=== PATIENT | male | born 1975 | race Caucasian/White ===

== ENCOUNTER 2019-10-26 11:00 | Outpatient (CLI) | payer BC, SELFPAY ==
--- NOTE | ~2019-10-26 | XR_ITS ---
EXAMINATION: XR abdomen/kub 1V INDICATION: Left flank pain TECHNIQUE: Supine views of the abdomen were obtained on 2 radiographs. COMPARISON: 12/31/2018 FINDINGS: Bowel contents project over the kidneys limiting sensitivity for renal stones. There is a stable 9 mm stone in the lower pole of the right kidney. A 6 mm linear calcification projecting over the left kidney lower pole could reflect a stone. No stones are identified along the expected courses of the ureters or within the urinary bladder. The bowel gas pattern is normal. The visualized lung b ases are clear. IMPRESSION: 1. Right nephrolithiasis and possible left nephrolithiasis. Reviewed, dictated and finalized at location A.
[2019-10-26 11:38] LABS: Add Urine Microscopic? YES; Appearance Urine Clear (Clear); Bilirubin Urine Negative (Negative); Blood Urine Negative (Negative); Color Urine Yellow (Yellow); Glucose Urine UA Negative (Negative); Ketones Urine Negative (Negative); Leukocyte Esterase Ur Negative LEU/UL (NEGATIVE); Mucus Urine Rare /lpf; Nitrate Urine Negative (Negative); Protein Urine Negative (Negative); RBC Urine 0-2 /hpf (0-2); Specific Grav Ur 1.016 (1.001-1.035); Squamous Epithelial Cell Urine Few /hpf (Few)
== END 2019-10-26 11:01 | disposition home or self-care (01) ==
PROVIDERS: PCP Internal Medicine; Visit Provider Nurse Practitioner Adult Health
DX: R10.9 Unspecified abdominal pain (principal); N20.0 Calculus of kidney
CPT/HCPCS: 74018; 81001; 87086

== ENCOUNTER 2019-10-30 09:56 | Outpatient (CLI) | payer BC, SELFPAY ==
--- NOTE | ~2019-10-30 | CT_ITS ---
EXAMINATION: CT abdomen pelvis wo con DATE: 10/30/2019 10:49 INDICATION: Left flank pain TECHNIQUE: Computed tomography (CT) of the abdomen and pelvis was performed without intravenous contr ast. The dose-length product (DLP) was 1661.64 mGy-cm. Automated exposure control and iterative recon struction technique were employed. COMPARISON: None FINDINGS: The lung bases are clear. The heart size is normal. The liver, spleen, pancreas, and adrena l glands are normal. The gallbladder is surgically absent. There are surgical changes near the gastro esophageal junction. There is a 9 mm nonobstructing stone of the left kidney lower pole. There is a 7 mm stone in the right renal pelvis. Nonobstructing stones measuring 9 mm and 6 mm are present in the right kidney lower pole. No stones are present in the ureters or bladder. There is no hydronephrosis or hydroureter. There are two large midline ventral hernias containing nonobstructed bowel and at le ast two epigastric hernias containing fat. No pathologically enlarged abdominal or pelvic lymph nodes are identified. There is no free intraperitoneal gas or evidence of bowel obstruction. There is mild lumbar spondylosis. IMPRESSION: 1. 7 mm stone in the right renal pelvis and bilateral nephrolithiasis without CT correlate for left f lank pain. 2. Multiple ventral hernias. Reviewed, dictated and finalized at location A. IMPRESSION: 1. 7 mm stone in the right renal pelvis and bilateral nephrolithiasis without C T correlate for left flank pain. 2. Multiple ventral hernias.
== END 2019-10-30 09:57 | disposition home or self-care (01) ==
PROVIDERS: PCP Internal Medicine; Visit Provider Nurse Practitioner Adult Health
DX: R10.9 Unspecified abdominal pain (principal); N20.0 Calculus of kidney; K43.9 Ventral hernia without obstruction or gangrene
CPT/HCPCS: 74176

== ENCOUNTER 2019-11-10 13:22 | Outpatient (CLI) | payer BC, SELFPAY ==
--- NOTE | 2019-11-10 13:24 | ECG_ITS ---
Measurements Intervals [place] Rate: 71 P: 34 RI: 156 QRS: 48 QRSD: 90 T: 41 QT: 353 QTc: 385 Interpretive Statements SINUS RHYTHM DELAYED PRECORDIAL R/S TRANSITION BASELINE ARTIFACT- I, III, AVR, AVL, AVF BORDERLINE ECG Electronically Signed On 11-10-2019 13:39:56 CDT by Ricardo Linder D.O.
[2019-11-10 14:04] LABS: Partial Thromboplastin Time 27.1 SECONDS (22.3-36.8)
== END 2019-11-10 13:23 | disposition home or self-care (01) ==
LOC: ANHSURGERY 13:24
PROVIDERS: PCP Internal Medicine; Visit Provider Urology
DX: N20.0 Calculus of kidney (principal); F17.200 Nicotine dependence, unspecified, uncomplicated; R94.31 Abnormal electrocardiogram [ECG] [EKG]
CPT/HCPCS: 36415; 85610; 85730; 87086; 93005

== ENCOUNTER 2019-11-17 08:23 | Outpatient (CLI) | payer BC, SELFPAY ==
[2019-11-17 17:42] LABS: SARS-CoV-2 RNA PCR Negative
== END 2019-11-17 08:24 | disposition home or self-care (01) ==
LOC: ANHCOVIDDT 08:23
PROVIDERS: PCP Internal Medicine; Visit Provider Urology
DX: Z01.818 Encounter for other preprocedural examination (principal); Z11.59 Encounter for screening for other viral diseases
CPT/HCPCS: 87635; C9803; U0003

== ENCOUNTER 2019-11-19 05:32 | Day surgery (SDC) | payer BC, SELFPAY ==
[2019-11-09 12:34] VITALS: BMI 44.6
--- NOTE | 2019-11-16 15:59 | PM.HPGS ---
History of Present Illness History of Present Illness Consent: Risks, benefits, and alternatives have been discussed and questions answered. Patient agrees to proceed with procedure. Chief complaint: Left kidney stones Narrative: Oj Wyman is a 44 year old male with a history of recurring urolithiasis. He recently underwent evaluation for left flank pain. CT scan of the abdomen and pelvis without contrast showed bilateral renal stones, 9 mm in the right kidney and 6 mm in the left kidney. Because the pain is in the left he is scheduled for left ESWL. He is aware of the risk of this procedure including, but not limited to, perinephric bleeding, urinary tract infection and failure to completely treat the stones. Review of Systems Constitutional: Constitutional: Denies chills, Denies fatigue, Denies fever(s) and Denies headache(s) Eyes: Eyes: Denies blurry vision ENT: Denies vertigo, Denies dizziness, Denies headache(s) and Denies sore throat Cardiovascular: Cardiovascular: Denies chest pain, Denies syncope, Denies lightheadedness, Denies palpitations, Denies dyspnea and Denies dyspnea on exertion Respiratory: Respiratory: Denies hemoptysis, Denies dyspnea and Denies dyspnea on exertion Gastrointestinal: Gastrointestinal: Denies melena, Denies bloating, Denies hematochezia, Denies change in bowel habits, Denies change in stool character, Denies constipation, Denies diarrhea and Denies vomiting Genitourinary: Genitourinary: Denies hematuria, Denies dysuria, Denies testicular pain, Denies urinary frequency, Denies urinary hesitancy and Denies urinary urgency Integumentary/Breasts: Skin/Breast: Denies pruritus, Denies lesions and Denies rash Neurologic: Denies confusion, Denies vertigo, Denies dizziness, Denies syncope and Denies headache(s) Psychiatric: Psychiatric: Denies anxiety, Denies change in appetite and Denies confusion Endocrine: Endocrine: Denies fatigue and Denies palpitations Meds Home Medications and Allergies Home Medications Medication Instructions Recorded Confirmed Type multivit with min-folic acid 0.4 mg PO DAILY 11/09/19 11/09/19 History [Adult One Daily Multivitamin] paroxetine HCl [Paxil] 20 mg PO QAM 11/09/19 11/09/19 History testosterone enanthate 50 mg SUBCUT WEEKLY 11/09/19 11/09/19 History Allergies Allergy/AdvReac Type Severity Reaction Status Date / Time Penicillins Allergy Severe throat Unverified 11/09/19 12:44 swelling Sulfa (Sulfonamide Allergy Severe Hives Unverified 11/09/19 12:44 Antibiotics) Exam Const: General: no acute distress Resp: Effort & Inspection: normal respiratory effort GI: Inspection: non-distended GI Palp: No abdominal tenderness and No Guarding due to palpation present (GI) Auscultation: normal bowel sounds Assessment and Plan Assessment and plan (1) Bilateral renal stones: Code(s): N20.0 - Calculus of kidney Status: Acute Assessment and Plan: Left ESWL
[2019-11-19] VITALS (7 sets, daily range): BP systolic 107–130; BP diastolic 61–76; PULSE 64–70; RESP 14–24; TEMP 36.4; O2SAT 94–100
--- NOTE | ~2019-11-19 | XR_ITS ---
EXAMINATION: XR abdomen/kub 1V DATE: 11/19/2019 06:33 INDICATION: Left flank pain. TECHNIQUE: A supine view of the abdomen on 2 radiographs was obtained. COMPARISON: CT abdomen and pelvis 10/30/2019 FINDINGS: There are no dilated loops of bowel. There are 3 stones in right kidney measuring up to 7 m m. There is a 6 mm stone or cluster of stones in left kidney lower pole. IMPRESSION: 1. Bilateral kidney stones. Reviewed, dictated and finalized at location A. IMPRESSION: 1. Bilateral kidney stones.
--- NOTE | 2019-11-19 07:00 | WPDHPUPDATE1 ---
History and Physical Update Update Date/Time: 11/19/19 07:00 History and Physical has been reviewed, including an updated exam of the patient. There are NO changes in the patient's condition. Risks, benefits, and alternatives have been discussed and questions answered. Patient agrees to proceed with procedure.
[2019-11-19] MEDS: LACTATED RINGERS 1,000 ML 30 ML IV CONT (07:25)
--- NOTE | 2019-11-19 08:05 | WPDANESEPPF ---
Anes - Initial Pre Proc Eval Procedure: Operation Date: 11/19/19 08:30 Proposed Procedures p Left Extracorporeal Shock Wave Lithotripsy - Felice Ndiaye MD Date/Time: 11/19/19 08:05 Surgeon: Felice Ndiaye MD Pre Op Diagnosis: Left kidney stones Patient Data Age: 44 Gender: M Height: 5 ft 11 in Weight: 153.5 kg Last Vital Signs Temp 36.4 C 11/19/19 07:51 Pulse 67 11/19/19 07:51 Resp 18 11/19/19 07:51 BP 130/76 11/19/19 07:51 Pulse Ox 99 11/19/19 07:51 Allergies Allergy/AdvReac Type Severity Reaction Status Date / Time Penicillins Allergy Severe throat Verified 11/19/19 06:55 swelling Sulfa (Sulfonamide Allergy Severe Hives Verified 11/19/19 06:55 Antibiotics) Home Medications Medication Instructions Recorded Confirmed Type multivit with min-folic acid 0.4 mg PO DAILY 11/09/19 11/19/19 History [Adult One Daily Multivitamin] paroxetine HCl [Paxil] 20 mg PO QAM 11/09/19 11/19/19 History testosterone enanthate 50 mg SUBCUT WEEKLY 11/09/19 11/19/19 History Patient hx anesthesia problems: none Family hx anesthesia problems: none [facility] Past Medical History Medical History (Updated 11/19/19 @ 08:05 by Michael Reynolds MD) Anxiety ABBE (obstructive sleep apnea) Anes - Eval Final PreProcedure Day of Procedure 11/19/19 08:05 Patient weight: morbidly obese Heart: regular rate and rhythm Lungs: clear to auscultation Airway: Mallampati scale class II Neurological: alert and oriented Last oral intake: >/= 8 hours ASA classification: III Emergent: no Anesthetic plan: proceed Anesthesia type and monitoring: general LMA and standard monitoring Informed Consent: The patient's anesthetic plan and its attendant risks and benefits were discussed with the patient/family/POA. Questions were solicited and answers provided to the satisfaction of the patient/family/POA.
[2019-11-19] MEDS: levoFLOXacin 500 MG/D5W 100 ML 500 MG/100 ML BAG 100 MG IVPB (08:35)
--- NOTE | 2019-11-19 09:06 | PM.PROC ---
Procedure Note - Detailed Date of procedure: 11/19/19 Pre-op diagnosis: Left kidney stones Post-op diagnosis: same Procedure performed: Left ESWL Description of procedure: The patient was brought to the operative suite where he was placed in the supine position on the Dornier II lithotripsy table. The focal point of the lithotripter was placed at a 5-6mm left lower pole renal calculus. We did inject 100cc of IV Omnipaque 240 to confirm proper positioning. A total of 2500 shocks were delivered at a power setting of 4. There appeared to be good fragmentation of the stone. The patient tolerated the procedure well and was taken to the recovery room in good condition. Anesthesia: GLMA Surgeon: Felice Ndiaye MD Estimated blood loss (mL): 0 Drains: No Packing: No Pathology: yes Complications: No immediate complications Condition: stable Disposition: PACU
[2019-11-19] MEDS: KETOROLAC 30 MG/ML VIAL (*BKC) IV PUSH (09:31)
== END 2019-11-19 11:00 | disposition home or self-care (01) ==
PROVIDERS: PCP Internal Medicine; Visit Provider Urology
PROC: (CPT 50590; principal; 2019-11-19 08:30)
DX: N20.0 Calculus of kidney (principal); G47.33 Obstructive sleep apnea (adult) (pediatric); F41.9 Anxiety disorder, unspecified; E66.01 Morbid (severe) obesity due to excess calories; Z68.42 Body mass index [BMI] 45.0-49.9, adult
CPT/HCPCS: 50590; 74018; A9270; J1100; J1885; J1956; J2405; J2704; J3010; J7030; J7120

== ENCOUNTER 2019-11-23 10:44 | Outpatient (CLI) | payer BC, SELFPAY ==
[2019-11-23 11:34] LABS: INR 1.1; Prothrombin Time 13.6 Seconds (11.1-14.7)
[2019-11-23 11:35] LABS: Partial Thromboplastin Time 27.9 SECONDS (22.3-36.8)
== END 2019-11-23 10:45 | disposition home or self-care (01) ==
LOC: ANHSURGERY 10:45
PROVIDERS: PCP Internal Medicine; Visit Provider Urology
DX: N20.0 Calculus of kidney (principal)
CPT/HCPCS: 36415; 85610; 85730; 87086

== ENCOUNTER 2019-12-01 00:28 | Outpatient (CLI) | payer BC, SELFPAY ==
[2019-12-01 18:10] LABS: SARS-CoV-2 RNA PCR Negative
== END 2019-12-01 00:29 | disposition home or self-care (01) ==
LOC: ANHCOVIDDT 00:28
PROVIDERS: PCP Internal Medicine; Visit Provider Urology
DX: Z20.828 Contact with and (suspected) exposure to other viral communicable diseases (principal); Z01.812 Encounter for preprocedural laboratory examination
CPT/HCPCS: 87635; C9803; U0003

== ENCOUNTER 2019-12-03 02:46 | Day surgery (SDC) | payer BC, SELFPAY ==
[2019-11-22 10:38] VITALS: BMI 45.8
--- NOTE | 2019-11-30 16:52 | P.HP_ITS ---
History of Present Illness History of Present Illness Consent: Risks, benefits, and alternatives have been discussed and questions answered. Patient agrees to proceed with procedure. Chief complaint: kidney stones Narrative: Oj Wyman is a 44 year old male who is a recurrent kidney stone former. He recently underwent left ESWL in his known to have 3 residual stones in his right kidney. He now presents for right ESWL Review of Systems Cardiovascular: Cardiovascular: Denies chest pain, Denies lightheadedness, Denies palpitations and Denies dyspnea Respiratory: Respiratory: Denies dyspnea Gastrointestinal: Gastrointestinal: Denies diarrhea, Denies nausea and Denies vomiting Genitourinary: Genitourinary: Denies hematuria and Denies dysuria Endocrine: Endocrine: Denies palpitations PMFSH Past Medical History Medical History Anxiety ABBE (obstructive sleep apnea) Social History Social History Gender identity (if verbalized by the patient): Male Meds Home Medications and Allergies Home Medications Medication Instructions Recorded Confirmed Type Adult One Daily Multivitamin 0.4 mg PO DAILY 11/09/19 11/22/19 History paroxetine HCl [Paxil] 20 mg PO QAM 11/09/19 11/22/19 History testosterone enanthate 100 mg SUBCUT WEEKLY 11/09/19 11/22/19 History ciprofloxacin HCl 500 mg PO Q12H #10 tablet 11/19/19 11/22/19 Rx Allergies Allergy/AdvReac Type Severity Reaction Status Date / Time Penicillins Allergy Severe throat Verified 11/22/19 10:35 swelling Sulfa (Sulfonamide Allergy Severe Hives Verified 11/22/19 10:35 Antibiotics) Exam Const: General: no acute distress Resp: Effort & Inspection: normal respiratory effort GI: Inspection: non-distended GI Palp: No abdominal tenderness and No Guarding due to palpation present (GI) Auscultation: normal bowel sounds Assessment and Plan Assessment and plan (1) Bilateral renal stones: Code(s): N20.0 - Calculus of kidney Status: Acute Assessment and Plan: * Right ESWL. Patient is aware of the risk including, but not limited to adverse cardiopulmonary events, bleeding from the kidney, failure to adequately treat his stones.
--- NOTE | ~2019-12-03 | XR_ITS ---
EXAMINATION: XR abdomen/kub 1V DATE: 12/03/2019 07:52 INDICATION: Right kidney stone. TECHNIQUE: A supine view of the abdomen on 2 radiographs was obtained. COMPARISON: CT abdomen and pelvis 10/30/2019 FINDINGS: There are no dilated loops of bowel. The kidneys are obscured by bowel. IMPRESSION: 1. Kidneys obscured by bowel. No visible urolithiasis. Reviewed, dictated and finalized at location A.
--- NOTE | 2019-12-03 07:04 | WPDHPUPDATE1 ---
History and Physical Update Update Date/Time: 12/03/19 07:04 History and Physical has been reviewed, including an updated exam of the patient. There are NO changes in the patient's condition. Risks, benefits, and alternatives have been discussed and questions answered. Patient agrees to proceed with procedure.
[2019-12-03 07:58] VITALS: BP 136/81; PULSE 70; RESP 20; TEMP 36.3; O2SAT 99
--- NOTE | 2019-12-03 08:33 | WPDANESEPPF ---
Anes - Initial Pre Proc Eval Procedure: Operation Date: 12/03/19 09:30 Proposed Procedures p Right Renal Extracorporeal Shock Wave Lithotripsy - Felice Ndiaye MD Date/Time: 12/03/19 08:33 Surgeon: Felice Ndiaye MD Pre Op Diagnosis: kidney stones Patient Data Age: 44 Gender: M Height: 5 ft 11 in Weight: 149.23 kg Allergies Allergy/AdvReac Type Severity Reaction Status Date / Time Penicillins Allergy Severe throat Verified 11/22/19 10:35 swelling Sulfa (Sulfonamide Allergy Severe Hives Verified 11/22/19 10:35 Antibiotics) Home Medications Medication Instructions Recorded Confirmed Type Adult One Daily Multivitamin 0.4 mg PO DAILY 11/09/19 11/22/19 History paroxetine HCl [Paxil] 20 mg PO QAM 11/09/19 11/22/19 History testosterone enanthate 100 mg SUBCUT WEEKLY 11/09/19 11/22/19 History ciprofloxacin HCl 500 mg PO Q12H #10 tablet 11/19/19 11/22/19 Rx Patient hx anesthesia problems: none Family hx anesthesia problems: none PMFSH Past Medical History Medical History (Updated 12/03/19 @ 08:33 by Tre Hoover MD) Anxiety Morbid obesity ABBE (obstructive sleep apnea) Social History Social History (Updated 12/03/19 @ 08:33 by Tre Hoover MD) Smoking status: Current every day smoker Gender identity (if verbalized by the patient): Male Anes - Eval Final PreProcedure Day of Procedure 12/03/19 08:33 Patient weight: morbidly obese Heart: regular rate and rhythm Lungs: clear to auscultation Airway: Mallampati scale class II and other (upper denture) Neurological: alert and oriented Last oral intake: >/= 8 hours ASA classification: III Emergent: no Anesthetic plan: proceed Anesthesia type and monitoring: general LMA and standard monitoring Informed Consent: The patient's anesthetic plan and its attendant risks and benefits were discussed with the patient/family/POA. Questions were solicited and answers provided to the satisfaction of the patient/family/POA.
[2019-12-03] MEDS: levoFLOXacin 500 MG/D5W 100 ML 500 MG/100 ML BAG 100 MG IVPB (08:56)
[2019-12-03] MEDS: LACTATED RINGERS 1,000 ML 30 ML IV CONT (09:05)
--- NOTE | 2019-12-03 09:20 | SUR.PREOP ---
family update provided
--- NOTE | 2019-12-03 09:21 | PM.PROC ---
Procedure Note - Detailed Date of procedure: 12/03/19 Pre-op diagnosis: kidney stones Post-op diagnosis: same Procedure performed: Right ESWL Description of procedure: The patient was brought to the operative suite where he was placed in the supine position on the Dornier lithotripsy table. The focal point of the lithotripter was placed at each of 3 stones in right renal pelvis and lower pole calyces.. A total of 2500 shocks were delivered at a power setting of 4 - distributing the shocks until each of the 3 stones appeared to be adequately treated. There appeared to be good fragmentation of the stone. The patient tolerated the procedure well and was taken to the recovery room in good condition. Anesthesia: GLMA Surgeon: Felice Ndiaye MD Estimated blood loss (mL): 0 Drains: No Packing: No Pathology: none sent Complications: No immediate complications Condition: stable Disposition: PACU
[2019-12-03 09:43] VITALS: BP 135/71; PULSE 77; RESP 16; TEMP 36.6; O2SAT 100
[2019-12-03 09:55] VITALS: BP 110/73; PULSE 73; RESP 16; O2SAT 100
[2019-12-03 10:10] VITALS: BP 119/72; PULSE 73; RESP 14; O2SAT 99
[2019-12-03 10:20] VITALS: BP 121/65; PULSE 76
[2019-12-03 10:30] VITALS: BP 133/65; PULSE 80
== END 2019-12-03 11:00 | disposition home or self-care (01) ==
PROVIDERS: PCP Internal Medicine; Visit Provider Urology
PROC: (CPT 50590; principal; 2019-12-03 09:30)
DX: N20.0 Calculus of kidney (principal); G47.33 Obstructive sleep apnea (adult) (pediatric); F41.9 Anxiety disorder, unspecified
CPT/HCPCS: 50590; 74018; J1100; J1956; J2250; J2405; J2704; J3010; J7120

== ENCOUNTER 2020-07-18 12:02 | Outpatient (CLI) | payer BC, SELFPAY ==
--- NOTE | ~2020-07-18 | XR_ITS ---
XR abdomen/kub 1V DATE: 07/18/2020 12:24 INDICATION: One-year post lithotripsy; history of kidney stones TECHNIQUE: AP projection, 2 views COMPARISON: 12/03/2019 KUB FINDINGS: Nonspecific bowel gas pattern without evidence of obstruction. No visceromegaly is evident. Some faint opacities overlie the renal silhouettes, of uncertain significance. Noncontrast CT abdome n pelvis is recommended for more definitive evaluation for urinary tract stones. IMPRESSION: Nonspecific abdomen Reviewed, dictated and finalized at Location A. Reviewed, dictated and finalized at location A. NICAL PLANNER IMPRESSION: Nonspecific abdomen
== END 2020-07-18 12:03 | disposition home or self-care (01) ==
PROVIDERS: PCP Internal Medicine; Visit Provider Urology
DX: N20.0 Calculus of kidney (principal)
CPT/HCPCS: 74018

== ENCOUNTER 2020-07-19 00:12 | Outpatient (CLI) | payer BC, SELFPAY ==
[2020-07-19 17:16] LABS: SARS-CoV-2 RNA PCR Negative
== END 2020-07-19 00:13 | disposition home or self-care (01) ==
LOC: ANHCOVIDDT 00:13
PROVIDERS: PCP Internal Medicine; Visit Provider Urology
DX: Z01.812 Encounter for preprocedural laboratory examination (principal); Z20.822 Contact with and (suspected) exposure to COVID-19
CPT/HCPCS: C9803; U0003; U0005

== ENCOUNTER 2020-07-19 07:30 | Outpatient (CLI) | payer BC, SELFPAY | END 2020-07-19 07:31 | disposition home or self-care (01) | PROVIDERS: PCP Internal Medicine; Visit Provider Urology | DX: N20.1 Calculus of ureter (principal); Z01.818 Encounter for other preprocedural examination | CPT/HCPCS: 87086; 87088 ==

== ENCOUNTER 2020-07-20 07:46 | Outpatient (CLI) | payer BC, SELFPAY ==
--- NOTE | 2020-07-20 07:50 | ECG_ITS ---
Measurements Intervals [place] Rate: 71 P: 27 CT: 163 QRS: 56 QRSD: 89 T: 54 QT: 340 QTc: 370 Interpretive Statements SINUS RHYTHM DELAYED PRECORDIAL R/S TRANSITION BASELINE ARTIFACT- I, III, AVR, AVL BORDERLINE ECG Electronically Signed On 07-20-2020 9:58:17 FLUID DYNAMICIST by Ricardo Linder D.O.
== END 2020-07-20 07:47 | disposition home or self-care (01) ==
PROVIDERS: PCP Internal Medicine; Visit Provider Urology
DX: Z01.818 Encounter for other preprocedural examination (principal); F17.200 Nicotine dependence, unspecified, uncomplicated; R94.31 Abnormal electrocardiogram [ECG] [EKG]
CPT/HCPCS: 93005

== ENCOUNTER 2020-07-21 02:07 | Day surgery (SDC) | payer BC, SELFPAY ==
[2020-07-19 09:48] VITALS: BMI 48.2
--- NOTE | ~2020-07-21 | XR_ITS ---
EXAMINATION: XR retrograde pyelo w/stent LT DATE: 07/22/2020 15:09 INDICATION: Internal ureteral stent placement TECHNIQUE: Fluoroscopic images from a left internal ureteral stent placement are submitted for review . 38 seconds of fluoroscopy time. FINDINGS: There is a left double-J internal ureteral stent projecting in expected position, with proximal [place] loop at the level of the renal pelvis and distal loop in the pelvis within the bladder lumen. IMPRESSION: 1. Left internal ureteral stent placement. Please refer to real-time procedural findings for detail s. Reviewed, dictated and finalized at location A. ATRIC PHYSICIAN IMPRESSION: 1. Left internal ureteral stent placement. Please refer to real-time procedur al findings for details.
[2020-07-21 09:22] VITALS: BP 136/85; PULSE 64; RESP 20; TEMP 36.9; O2SAT 98
[2020-07-21] MEDS: LACTATED RINGERS 1,000 ML 30 ML IV CONT (10:05)
--- NOTE | 2020-07-21 10:06 | WPDHPUPDATE1 ---
History and Physical Update Update Date/Time: 07/21/20 10:06 History and Physical has been reviewed, including an updated exam of the patient. There are NO changes in the patient's condition. Risks, benefits, and alternatives have been discussed and questions answered. Patient agrees to proceed with procedure. Proceed with cysto, left retrograde, left ureteroscopy with stone extraction , possible laser, stent placement
--- NOTE | 2020-07-21 10:13 | WPDANESEPPF ---
Anes - Initial Pre Proc Eval Procedure: Operation Date: 07/21/20 11:00 Proposed Procedures p Cystoscopy, Left Ureteroscopy With Stone Extraction, Possible Left Retrograde Pyelogram, Possible Left Stent Placement - Fabián Bañuelos MD s Holmium Laser Procedure - Fabián Bañuelos MD Date/Time: 07/21/20 10:13 Surgeon: Fabián Bañuelos MD Pre Op Diagnosis: Left UPJ Stone Patient Data Age: 45 Gender: M Height: 5 ft 11 in Weight: 157 kg Allergies Allergy/AdvReac Type Severity Reaction Status Date / Time Penicillins Allergy Severe throat Verified 12/03/19 09:06 swelling Sulfa (Sulfonamide Allergy Severe Hives Verified 12/03/19 09:06 Antibiotics) Home Medications Medication Instructions Recorded Confirmed Type Adult One Daily Multivitamin 0.4 mg PO DAILY 11/09/19 07/19/20 History paroxetine HCl [Paxil] 20 mg PO QAM 11/09/19 07/19/20 History testosterone enanthate 100 mg SUBCUT WEEKLY 11/09/19 07/19/20 History hydrocodone-acetaminophen 1 - 2 tablet PO Q6H PRN #20 tablet 12/03/19 07/19/20 Rx cyanocobalamin (vitamin B-12) 1,000 mcg IM WEEKLY 07/19/20 07/19/20 History tamsulosin 0.4 mg PO DAILY 07/19/20 07/19/20 History Patient hx anesthesia problems: none Family hx anesthesia problems: none PMFSH Past Medical History Medical History (Updated 12/03/19 @ 08:33 by Tre Hoover MD) Anxiety Morbid obesity ABBE (obstructive sleep apnea) Social History Social History (Updated 12/03/19 @ 08:33 by Tre Hoover MD) Smoking packs per day: 1.5 Smoking cigarettes per day: 30.0 Years smoked: 25 Smoking pack-years: 37.50 Smoking status: Current every day smoker Tobacco type: cigarettes Living arrangements: with family Gender identity (if verbalized by the patient): Male Sexual Orientation (if Verbalized by the Patient): Straight or Heterosexual Spiritual care concerns: No Anes - Eval Final PreProcedure Day of Procedure 07/21/20 10:13 Patient weight: morbidly obese Heart: regular rate and rhythm Lungs: clear to auscultation Airway: Mallampati scale class III Neurological: alert and oriented Last oral intake: >/= 8 hours ASA classification: III Emergent: no Anesthetic plan: proceed Anesthesia type and monitoring: general LMA and standard monitoring Informed Consent: The patient's anesthetic plan and its attendant risks and benefits were discussed with the patient/family/POA. Questions were solicited and answers provided to the satisfaction of the patient/family/POA.
[2020-07-21] MEDS: levoFLOXacin 500 MG/D5W 100 ML 500 MG/100 ML BAG 100 MG IVPB (10:31)
--- NOTE | 2020-07-21 11:03 | SUR.OPER ---
B/S CONTOUR VL 4.8F LOT [id number], EXP 2023-04-27
[2020-07-21] MEDS: LIDOCAINE HCL 2% GEL UROJET 10 ML PKG MUCOUS MEM (11:27)
--- NOTE | 2020-07-21 11:29 | PM.PROC ---
Procedure Note - Detailed Date of procedure: 07/21/20 Pre-op diagnosis: Left UPJ Stone Post-op diagnosis: same Procedure performed: Cystoscopy, left retrograde pyelogram left ureteroscopy with holmium laser of UPJ stone as well as lower pole stone, left ureteral stent placement 4.8 Dominican contour with stone extraction Description of procedure: Patient is taken the operative suite and correctly identified. Once anesthesia was obtained he was placed in dorsal lithotomy position and prepped and draped usual sterile fashion. Twenty-two Dominican scope inserted the bladder. There are no tumors noted. Left ureteral orifice was cannulated with a guidewire. It was noted that patient had a 5 mm UPJ stone. The we placed a mini flexible ureteral scope in. The stone was impacted. Using a 273 micron fiber we fragmented in small pieces. We retrieve those and sent them for analysis. He has also a known left lower pole stone. We placed ureteral access sheath. We then fragmented the lower pole stone and grabbed all larger pieces. Pyelogram was then performed to confirm placement of the stent. 4.8 Dominican contour stent was then placed with the proximal end coiled in the renal pelvis and the distal in the bladder. Bladder was drained. 2% viscous lidocaine was inserted urethra. Patient is taken recovery stable condition. He will follow up in a week's time for stent removal. Anesthesia: GLMA Surgeon: Fabián Bañuelos MD Drains: Yes Packing: No Pathology: yes Complications: No immediate complications Condition: stable Disposition: PACU
[2020-07-21 11:37] VITALS: BP 157/99; PULSE 83; RESP 14; TEMP 36.3; O2SAT 100
[2020-07-21 11:51] VITALS: BP 154/90; PULSE 74; RESP 12; O2SAT 100
[2020-07-21 12:05] VITALS: BP 150/85; PULSE 74; RESP 16; O2SAT 94
[2020-07-21 12:20] VITALS: BP 160/100; PULSE 72; RESP 20
[2020-07-21 12:50] VITALS: BP 164/92; PULSE 74; RESP 16
== END 2020-07-21 13:10 | disposition home or self-care (01) ==
PROVIDERS: PCP Internal Medicine; Visit Provider Urology
PROC: (CPT 52352; principal; 2020-07-21 11:00)
PROC: (CPT 52356; 2020-07-21 11:00)
DX: N20.1 Calculus of ureter (principal); G47.33 Obstructive sleep apnea (adult) (pediatric); F41.9 Anxiety disorder, unspecified; E66.01 Morbid (severe) obesity due to excess calories; Z68.42 Body mass index [BMI] 45.0-49.9, adult; F17.210 Nicotine dependence, cigarettes, uncomplicated
CPT/HCPCS: 52356; 74420; 82365; 88300; A9270; C1758; C1769; C1894; C2617; J1100; J1956; J2250; J2405; J2704; J7120; Q9966

== ENCOUNTER 2020-09-21 06:54 | Outpatient (CLI) | payer BC, SELFPAY ==
--- NOTE | ~2020-09-21 | XR_ITS ---
EXAMINATION: XR abdomen/kub 1V EXAM DATE: 09/21/2020 07:09 INDICATION: Bilateral kidney stones. TECHNIQUE: Frontal projection(s) of the abdomen for interpretation. Comparison is made to prior exami nation from 07/18/2020. FINDINGS: There is bowel gas overlying the kidneys. There is approximately 1 cm density projecting o michelle the right kidney which could be a kidney stone. Nonobstructive bowel gas pattern. There are mild bony degenerative changes. IMPRESSION: 1. Limited exam but possible right nephrolithiasis. Reviewed, dictated and finalized at location A.
== END 2020-09-21 06:55 | disposition home or self-care (01) ==
LOC: ANHIMG 06:57
PROVIDERS: PCP Internal Medicine; Visit Provider Urology
DX: N20.0 Calculus of kidney (principal)
CPT/HCPCS: 74018

== ENCOUNTER → 2020-10-04 14:40 | Outpatient (CLI) | payer BC, SELFPAY ==
--- NOTE | ~2020-10-04 | CT_ITS ---
EXAMINATION: CT abdomen pelvis wo con DATE: 10/04/2020 14:59 INDICATION: Kidney stones. TECHNIQUE: Computed tomography (CT) of the abdomen and pelvis was performed without intravenous contr ast. The dose-length product was 1150.95 mGy-cm. Automated exposure control and iterative reconstruct ion technique were employed. COMPARISON: CT dated 10/30/2019 FINDINGS: Lung bases are unremarkable. Heart size is normal. No there are surgical changes of gastric bypass surgery. There are multiple ventral hernia containing nonobstructed bowel. There are bilatera l renal stones, largest in the left renal pelvis measuring 12 mm. No ureteral stones or hydronephrosi s. The liver, spleen, pancreas, adrenal glands are unremarkable. Nonobstructive bowel gas pattern. Colon ic diverticulosis without evidence for diverticulitis. No free air or free fluid. IMPRESSION: 1. Bilateral nonobstructing renal stones, largest in the right kidney measuring 12 mm. Reviewed, dictated and finalized at location A.
== END ==
PROVIDERS: PCP Internal Medicine; Visit Provider Urology
DX: N20.0 Calculus of kidney (principal)
CPT/HCPCS: 74176

== ENCOUNTER 2021-05-01 10:27 | Outpatient (CLI) | payer BC, SELFPAY ==
--- NOTE | ~2021-05-01 | XR_ITS ---
EXAMINATION: XR abdomen/kub 1V EXAM DATE: 05/01/2021 10:47 INDICATION: Kidney stones. TECHNIQUE: Frontal projection of the upper abdomen, frontal projection lower abdomen/pelvis for inter pretation. Comparison is made to prior examination from 09/21/2020. FINDINGS: There is moderate amount of colonic stool and gas. No small bowel dilation, nonobstructiv e bowel gas pattern. There are no suspicious calcifications identified. There is no organomegaly suspected. There are bony degenerative changes. IMPRESSION: Moderate colonic stool obscuring renal contours. Reviewed, dictated and finalized at location B. ER BLANKETS
== END 2021-05-01 10:28 | disposition home or self-care (01) ==
PROVIDERS: PCP Internal Medicine; Visit Provider Urology
DX: N20.0 Calculus of kidney (principal)
CPT/HCPCS: 74018

== ENCOUNTER 2021-10-31 10:28 | Outpatient (CLI) | payer BC, SELFPAY ==
--- NOTE | ~2021-10-31 | XR_ITS ---
EXAMINATION: XR abdomen/kub 1V INDICATION: New onset left flank pain TECHNIQUE: Supine views of the abdomen were obtained on 2 radiographs. COMPARISON: 05/01/2021; CT, 10/04/2020 FINDINGS: The examination is limited by the patient's body habitus. There appears to be a 10 mm ston e of the left kidney lower pole. Calcifications measuring up to 6 mm project between the left L2 and L3 transverse processes which are at the expected location of the left ureteropelvic junction. The xavier wel gas pattern is normal. IMPRESSION: 1. Possible stone at the left ureteropelvic junction. Two left nephrolithiasis. Reviewed, dictated and finalized at location A.
== END 2021-10-31 10:29 | disposition home or self-care (01) ==
PROVIDERS: PCP Internal Medicine; Visit Provider Urology
DX: N20.0 Calculus of kidney (principal)
CPT/HCPCS: 74018

== ENCOUNTER 2021-11-06 06:36 | Outpatient (CLI) | payer BC, SELFPAY ==
--- NOTE | ~2021-11-06 | CT_ITS ---
EXAMINATION: CT abdomen pelvis wo con DATE: 11/06/2021 06:55 INDICATION: Bilateral kidney stones TECHNIQUE: Computed tomography (CT) of the abdomen and pelvis was performed without intravenous contr ast. The dose-length product was 1207.57 mGy-cm. Automated exposure control and iterative reconstruct ion technique were employed. COMPARISON: CT dated 10/04/2020 FINDINGS: Heart size is normal. No significant pleural or pericardial effusion. There are multiple ve ntral hernias containing nonobstructed bowel. The liver, spleen, pancreas, adrenal glands are unremar kable. There are nonobstructing bilateral renal stones. There is a small hypodense lesion of the left kidney, not well characterize without contrast, although likely benign cysts. There are surgical nani nges of gastric bypass. There is a small gastric lipoma. No free air or free fluid. No lymphadenopath y. No significant vascular abnormality. No focal lytic or blastic lesions. There is a superior endpla te compression fracture of L1 which is new compared with prior examination. There is subtle mesenteri c fatty infiltration with mesenteric lymph nodes which are increased in number if not size, suspiciou s for sclerosing mesenteritis. IMPRESSION: 1. New L1 superior endplate compression fracture, age indeterminate. 2: Nonobstructing bilateral nephrolithiasis. 3: Multiple [place] ventral abdominal wall hernias containing nonobstructed bowel. Reviewed, dictated and finalized at location A. IMPRESSION: 1. New L1 superior endplate compression fracture, age indeterminate. 2: Nonobstructing bilateral nephrolithiasis. 3: Multiple [place] ventral abdominal wall hernias containing nonobstructed b owel.
== END 2021-11-06 06:37 | disposition home or self-care (01) ==
PROVIDERS: PCP Internal Medicine; Visit Provider Urology
DX: N20.0 Calculus of kidney (principal); S32.010A Wedge compression fracture of first lumbar vertebra, initial encounter for closed fracture; X58.XXXA Exposure to other specified factors, initial encounter
CPT/HCPCS: 74176

== ENCOUNTER 2022-04-23 10:45 | Outpatient (CLI) | payer BC, SELFPAY ==
--- NOTE | ~2022-04-23 | XR_ITS ---
EXAMINATION: XR abdomen/kub 1V DATE: 04/23/2022 11:08 INDICATION: Microscopic hematuria. TECHNIQUE: A supine view of the abdomen on 2 radiographs was obtained. COMPARISON: Abdomen radiographs 10/31/2021, CT abdomen and pelvis 11/06/2021 FINDINGS: There are no dilated loops of bowel. The kidneys are obscured by bowel. There are approxima tely two stones in right kidney lower pole measuring up to 5 mm. There are approximately 3 stones in left kidney lower pole measuring up to 6 mm. IMPRESSION: 1. Bilateral kidney stones. Reviewed, dictated and finalized at location A. EQUIN SANDER AND FINISHER IMPRESSION: 1. Bilateral kidney stones.
== END 2022-04-23 10:46 | disposition home or self-care (01) ==
PROVIDERS: PCP Internal Medicine; Visit Provider Nurse Practitioner Adult Health
DX: R31.29 Other microscopic hematuria (principal); N20.0 Calculus of kidney
CPT/HCPCS: 74018

== ENCOUNTER 2022-05-28 11:17 | Outpatient (CLI) | payer BC, SELFPAY ==
--- NOTE | ~2022-05-28 | XR_ITS ---
Supine views of the abdomen Clinical history: Left ureteral stone, recent hernia repair Findings: Bowel gas pattern is nonspecific. No evidence for obstruction or free air. Bilateral renal stones are similar to prior exam. Osseous structures are intact. Impression: Bilateral renal stones, similar to prior exam. No definite stone along the course of the ureters. Reviewed, dictated and finalized at location [] PRESSURE KETTLE OPERATOR Impression: Bilateral renal stones, similar to prior exam. No definite stone along the cour se of the ureters.
== END 2022-05-28 11:18 | disposition home or self-care (01) ==
PROVIDERS: PCP Internal Medicine; Visit Provider Nurse Practitioner Adult Health
DX: N20.2 Calculus of kidney with calculus of ureter (principal)
CPT/HCPCS: 74018

== ENCOUNTER 2022-06-03 08:06 | Outpatient (CLI) | payer BC, SELFPAY ==
--- NOTE | 2022-06-03 08:30 | ECG_ITS ---
Measurements Intervals [place] Rate: 89 P: 29 GA: 150 QRS: 55 QRSD: 85 T: 39 QT: 321 QTc: 390 Interpretive Statements SINUS RHYTHM WITH SINUS ARRHYTHMIA OTHERWISE NORMAL ECG COMPARED TO ECG 07/20/2020 08:22:49 SINUS ARRHYTHMIA NOW PRESENT Electronically Signed On 06-03-2022 10:30:29 PIER MASTER by Thaddeus Dior M.D.
[2022-06-03 09:11] LABS: Hematocrit 45.3 % (42.0-52.0); Hemoglobin 15.4 g/dL (14.0-18.0)
[2022-06-03 09:27] LABS: INR 1.1; Prothrombin Time 13.6 Seconds (11.1-14.7)
[2022-06-03 09:28] LABS: Partial Thromboplastin Time 27.3 SECONDS (22.3-36.8)
== END 2022-06-03 08:07 | disposition home or self-care (01) ==
PROVIDERS: Anesthesiology; PCP Internal Medicine; Visit Provider Urology
DX: N20.0 Calculus of kidney (principal); D64.9 Anemia, unspecified; F17.210 Nicotine dependence, cigarettes, uncomplicated; Z01.818 Encounter for other preprocedural examination
CPT/HCPCS: 36415; 85014; 85018; 85610; 85730; 87086; 87088; 93005

== ENCOUNTER 2022-06-07 00:47 | Day surgery (SDC) | payer BC, SELFPAY ==
[2022-05-29 11:15] VITALS: BMI 37.6
--- NOTE | 2022-05-29 11:19 | PC.NURSE ---
Addendum entered by Ava Suarez RN 05/29/22 11:29: MASK REQUIRED AT THIS TIME. Original Note: Report to the Outpatient Waiting Room, entrance under the green pavilion located off [facility], at time 6:00 on date 06/07/22. Planned Procedure Time: 7:30. Time changes happen often and if your time is changed the preop area will call you the afternoon before. - You and your visitor will be asked to self-screen and do not enter if you have any COVID symptoms. - Only one visitor is requested with a max of two and NO children visitors are allowed at this time. - The patient visitor may be requested to leave or wait in car when not with patient due to distancing restrictions. - A mask is optional within the hospital. Patients may have clear liquids (water, carbonated beverages, clear teas, apple juice) until 3 hours prior to surgery (4:30) with a maximum of 20 ounces. - No food from midnight until time of surgery Take the following medications with a SIP of water the morning of surgery: PAXIL, ANTIBIOTIC Medications to discontinue per physician: VITAMINS Date to take last dose: 06/03/22 Please no make-up, nail setswana, hairspray, perfume, deodorant, or body powder the day of surgery. No jewelry (including any body piercings) or valuables the day of surgery, leave them at home. Please take a shower or bath the night before, or the morning of, surgery with an antibacterial soap. Wear comfortable, loose fitting clothing. - Jewelry must be removed prior to entering the operating room. Rings and piercings that are not removed may be cut off. - The hospital will not accept responsibility for valuables. - Please leave all valuables, including medications, at home the day of surgery. If you are going home after surgery, a licensed stacker driver must drive you home. - NO public transportation without another adult if you receive anesthesia. - We recommend that an adult stay with you for 24 hours following discharge. - We also recommend that you do not drive, make important decision, drink alcoholic beverages, or take any drugs that were not prescribed by your health care provider for at least 24 hours after your discharge time. Follow any additional instructions given to you from your surgeon. If you or anyone in your household have experienced Covid symptoms in the past week, please notify your surgeon or the nurse liaison at the phone number below for possible testing. Telephone instructions given to PT - GREGORY MORTON and asked if any additional questions and then verbalized understanding. Patient advised to call surgeon office or pre surgery nurse liaison [phone] if any additional questions.
[2022-06-07] VITALS (7 sets, daily range): BP systolic 86–134; BP diastolic 54–82; PULSE 76–95; RESP 14–18; TEMP 35.9–36.3; O2SAT 97–100
--- NOTE | ~2022-06-07 | XR_ITS ---
EXAMINATION: XR abdomen/kub 1V DATE: 06/07/2022 06:26 INDICATION: Kidney stone. TECHNIQUE: A supine view of the abdomen on 2 radiographs was obtained. COMPARISON: CT abdomen and pelvis 11/06/2021, abdomen radiographs 05/28/2022 FINDINGS: There are no dilated loops of bowel. The kidneys are obscured by bowel. There are approxima tely 5 stones in right kidney measuring up to 10 mm. There are approximately 4 stones in left kidney measuring up to 8 mm. There are phleboliths in the pelvis. IMPRESSION: 1. Bilateral kidney stones. Reviewed, dictated and finalized at location A. SPORTATION CONSULTANT IMPRESSION: 1. Bilateral kidney stones.
[2022-06-07] MEDS: LACTATED RINGERS 1,000 ML 30 ML IV CONT (06:39)
--- NOTE | 2022-06-07 06:42 | WPDANESEPPF ---
Anes - Initial Pre Proc Eval Procedure: Operation Date: 06/07/22 07:30 Proposed Procedures p Left Extracorporeal Shock Wave Lithotripsy - Felice Ndiaye MD Date/Time: 06/07/22 06:42 Surgeon: Felice Ndiaye MD Pre Op Diagnosis: Lt Ureteral Stone Patient Data Age: 47 Gender: M Height: 1.8 m Weight: 122.47 kg Allergies Allergy/AdvReac Type Severity Reaction Status Date / Time Penicillins Allergy Severe throat Verified 06/07/22 06:41 swelling Sulfa (Sulfonamide Allergy Severe Hives Verified 06/07/22 06:41 Antibiotics) Home Medications Medication Instructions Recorded Confirmed Type paroxetine HCl 20 mg tablet (Paxil) 20 mg PO QAM 11/09/19 06/07/22 History testosterone enanthate 50 mg/0.5 100 mg subcut WEEKLY 11/09/19 06/07/22 History mL subcutaneous auto-injector ferrous sulfate 325 mg (65 mg 325 mg PO DAILY 05/29/22 06/07/22 History iron) tablet (Iron (ferrous sulfate)) trimethoprim 100 mg tablet 100 mg PO BID 05/29/22 06/07/22 History Patient hx anesthesia problems: none Family hx anesthesia problems: none Results Review: All pre-operative results and documents have been reviewed as part of the pre-operative evaluation. [facility] Past Medical History Medical History Anxiety Morbid obesity ABBE (obstructive sleep apnea) Surgical History Surgical History (Updated 06/07/22 @ 06:42 by Tre Hoover MD) Hx of cystoscopy Social History Social History Smoking packs per day: 1 Smoking cigarettes per day: 20.0 Years smoked: 20 Smoking pack-years: 20.00 Smoking status: Current every day smoker Tobacco type: cigarettes Alcohol intake: never Substance use: never Substance use type: does not use Living arrangements: with family Gender identity (if verbalized by the patient): Male Sexual Orientation (if Verbalized by the Patient): Straight or Heterosexual Spiritual care concerns: No Anes - Eval Final PreProcedure Day of Procedure 06/07/22 06:42 Patient weight: obese Heart: regular rate and rhythm Lungs: clear to auscultation Airway: Mallampati scale class III Neurological: alert and oriented Last oral intake: >/= 8 hours ASA classification: III Emergent: no Anesthetic plan: proceed Anesthesia type and monitoring: general LMA and standard monitoring Results Review: All pre-operative results and documents have been reviewed as part of the pre-operative evaluation. Informed Consent: The patient's anesthetic plan and its attendant risks and benefits were discussed with the patient/family/POA. Questions were solicited and answers provided to the satisfaction of the patient/family/POA.
--- NOTE | 2022-06-07 07:23 | P.HP_ITS ---
History of Present Illness History of Present Illness Consent: Risks, benefits, and alternatives have been discussed and questions answered. Patient agrees to proceed with procedure. Chief complaint: Lt Ureteral Stone Narrative: Oj Wyman is a 47 year old male with a history of recurrent urolithiasis. Recent evaluation revealed bilateral nonobstructing renal stones. After discussion options he has elected for ESWL, starting left. Risk includin g, but not limited to, adverse cardiopulmonary events hematuria need for additional procedures and perinephric hematoma. Review of Systems Cardiovascular: Cardiovascular: Denies chest pain, Denies lightheadedness, Denies palpitations and Denies dyspnea Respiratory: Respiratory: Denies dyspnea Gastrointestinal: Gastrointestinal: Denies diarrhea, Denies nausea and Denies vomiting Genitourinary: Genitourinary: Denies hematuria and Denies dysuria Endocrine: Endocrine: Denies palpitations PMFSH Past Medical History Medical History Anxiety Morbid obesity ABBE (obstructive sleep apnea) Surgical History Surgical History (Updated 06/07/22 @ 06:42 by Tre Hoover MD) Hx of cystoscopy Social History Social History Smoking packs per day: 1 Smoking cigarettes per day: 20.0 Years smoked: 20 Smoking pack-years: 20.00 Smoking status: Current every day smoker Tobacco type: cigarettes Alcohol intake: never Substance use: never Substance use type: does not use Living arrangements: with family Gender identity (if verbalized by the patient): Male Sexual Orientation (if Verbalized by the Patient): Straight or Heterosexual Spiritual care concerns: No Meds Home Medications and Allergies Home Medications Medication Instructions Recorded Confirmed Type paroxetine HCl 20 mg tablet (Paxil) 20 mg PO QAM 11/09/19 06/07/22 History testosterone enanthate 50 mg/0.5 100 mg subcut WEEKLY 11/09/19 06/07/22 History mL subcutaneous auto-injector ferrous sulfate 325 mg (65 mg 325 mg PO DAILY 05/29/22 06/07/22 History iron) tablet (Iron (ferrous sulfate)) trimethoprim 100 mg tablet 100 mg PO BID 05/29/22 06/07/22 History Allergies Allergy/AdvReac Type Severity Reaction Status Date / Time Penicillins Allergy Severe throat Verified 06/07/22 06:41 swelling Sulfa (Sulfonamide Allergy Severe Hives Verified 06/07/22 06:41 Antibiotics) Vital Signs Vital Signs - 24 hr 06/07/22 06:44 Temperature 96.7 F L Pulse Rate 95 Respiratory Rate 18 Blood Pressure 112/79 Pulse Oximetry 100 Oxygen Delivery Room Air Exam Const: General: no acute distress Resp: Effort & Inspection: normal respiratory effort GI: Inspection: non-distended GI Palp: No abdominal tenderness and No Guarding due to palpation present (GI) Auscultation: normal bowel sounds Assessment and Plan Assessment and plan (1) Bilateral renal stones: Code(s): N20.0 - Calculus of kidney Status: Acute Assessment and Plan: * Left ESWL
--- NOTE | 2022-06-07 07:24 | WPDHPUPDATE1 ---
History and Physical Update Update Date/Time: 06/07/22 07:24 History and Physical has been reviewed, including an updated exam of the patient. There are NO changes in the patient's condition. Risks, benefits, and alternatives have been discussed and questions answered. Patient agrees to proceed with procedure.
[2022-06-07] MEDS: levoFLOXacin 500 MG/D5W 100 ML 500 MG/100 ML BAG 100 MG IVPB (07:29)
--- NOTE | 2022-06-07 08:16 | W.PM.PROC2 ---
Procedure Note - Detailed Date of Procedure 06/07/22 Pre-op Diagnosis Bilateral renal stones Post-op Diagnosis Same Procedure Performed Left ESWL Surgeon Felice Ndiaye MD Anesthesia General Description of Procedure The patient was brought to the operative suite where he was placed in the supine position on the Dornier lithotripsy table. The focal point of the lithotripter was placed at a collection of contiguous stones in left lower pole calyx. A total of 2500 shocks were delivered at a power setting of 4. There appeared to be good fragmentation of the stone. The patient tolerated the procedure well and was taken to the recovery room in good condition. Drains No Packing No Pathology None sent Complications No immediate complications
== END 2022-06-07 10:00 | disposition home or self-care (01) ==
PROVIDERS: PCP Internal Medicine; Visit Provider Urology
PROC: (CPT 50590; principal; 2022-06-07 07:30)
DX: N20.0 Calculus of kidney (principal); G47.33 Obstructive sleep apnea (adult) (pediatric); F41.9 Anxiety disorder, unspecified; E66.01 Morbid (severe) obesity due to excess calories; Z68.37 Body mass index [BMI] 37.0-37.9, adult; F17.210 Nicotine dependence, cigarettes, uncomplicated
CPT/HCPCS: 50590; 74018; J1100; J1956; J2250; J2405; J2704; J3010; J7120

== ENCOUNTER 2022-12-18 07:35 | Outpatient (CLI) | payer BC, SELFPAY ==
--- NOTE | ~2022-12-18 | XR_ITS ---
EXAMINATION: XR abdomen/kub 1V DATE: 12/18/2022 07:48 INDICATION: Calculus of kidney. TECHNIQUE: A supine view of the abdomen on 2 radiographs was obtained. COMPARISON: CT abdomen and pelvis 11/06/2021, abdomen radiographs 06/0408/20/2021 FINDINGS: There are no dilated loops of bowel. There is a right internal ureteral stent in expected p osition. The kidneys are obscured by bowel. There are 8 mm and 6 mm stones in left kidney. There are stones and clusters of stones in right kidney measuring up to 15 mm. There is a 4 x 8 mm density over lying proximal right ureter. IMPRESSION: 1. Stones in the kidneys. 2. Right internal ureteral stent in expected position. A density overlying proximal right ureter may be a stone. Reviewed, dictated and finalized at location A. IMPRESSION: 1. Stones in the kidneys. 2. Right internal ureteral stent in expected position. A density overlying prox imal right ureter may be a stone.
== END 2022-12-18 07:36 | disposition home or self-care (01) ==
LOC: ANHIMG 07:39
PROVIDERS: Visit Provider Urology
DX: N20.0 Calculus of kidney (principal)
CPT/HCPCS: 74018

== ENCOUNTER 2023-01-17 07:32 | Outpatient (CLI) | payer BC, SELFPAY ==
--- NOTE | ~2023-01-17 | XR_ITS ---
Supine and upright views of the abdomen Clinical history: Right renal stone COMPARISON: 12/18/2022 Findings: Bowel gas pattern is nonspecific. No evidence for obstruction or free air. Right ureteral s tent remains in place. Right lower pole renal stone present, measuring approximately 14 mm in diamete r. Osseous structures are intact. Impression: Right ureteral stent with right lower pole renal stone. Reviewed, dictated and finalized at location . Impression: Right ureteral stent with right lower pole renal stone.
== END 2023-01-17 07:33 | disposition home or self-care (01) ==
PROVIDERS: Visit Provider Urology
DX: N20.0 Calculus of kidney (principal)
CPT/HCPCS: 74018

== ENCOUNTER 2023-01-27 11:24 | Outpatient (CLI) | payer BC, SELFPAY ==
--- NOTE | ~2023-01-27 | XR_ITS ---
EXAMINATION: XR abdomen/kub 1V INDICATION: Bilateral kidney stones TECHNIQUE: Supine views of the abdomen were obtained on 2 radiographs. COMPARISON: 01/17/2023 FINDINGS: A right internal ureteral stent is in expected position. There is a 1.4 cm stone of the lef t kidney lower pole. There appear to be multiple stone fragments adjacent to the internal ureteral st ent at the level of the L5 vertebral body as well as in the pelvis. The bowel gas pattern is normal. IMPRESSION: 1. Right internal ureteral stent in expected position. 2. Right lower pole nephrolithiasis and apparent stones adjacent to the mid and distal internal urete ral stent. Reviewed, dictated and finalized at location B. IMPRESSION: 1. Right internal ureteral stent in expected position. 2. Right lower pole nephrolithiasis and apparent stones adjacent to the mid and distal internal ureteral stent.
== END 2023-01-27 11:25 | disposition home or self-care (01) ==
LOC: ANHIMG 11:34
PROVIDERS: Visit Provider Urology
DX: N20.0 Calculus of kidney (principal)
CPT/HCPCS: 74018

== ENCOUNTER 2023-04-04 13:22 | Outpatient (CLI) | payer BC, SELFPAY ==
--- NOTE | ~2023-04-04 | XR_ITS ---
EXAMINATION: XR abdomen/kub 1V INDICATION: Bilateral kidney stones TECHNIQUE: Supine views of the abdomen were obtained on 2 radiographs. COMPARISON: 01/27/2023 FINDINGS: There are stones measuring 9 mm and 7 mm in the left kidney. The right internal ureteral st ent has been. There is a 12 mm stone of the right kidney lower pole. No stones are identified along t he expected courses of the ureters or in the urinary bladder. The bowel gas pattern is unremarkable. The visualized lung bases are clear. IMPRESSION: 1. Bilateral nephrolithiasis. Reviewed, dictated and finalized at location F.
== END 2023-04-04 13:23 | disposition home or self-care (01) ==
PROVIDERS: Visit Provider Urology
DX: N20.0 Calculus of kidney (principal)
CPT/HCPCS: 74018

== ENCOUNTER 2023-06-27 13:11 | Outpatient (CLI) | payer BC, SELFPAY ==
--- NOTE | ~2023-06-27 | XR_ITS ---
EXAM: XR abdomen/kub 1V DATE: 06/27/2023 13:33 HISTORY: BILATERAL KIDNEY STONE, LEFT LITHO X1 WEEK AGO . COMPARISON: 04/04/2023. FINDINGS: Clear lung bases. Normal bowel gas pattern. No organomegaly. Left renal calcifications not ed previously are no longer visualized. Stable 1.4 cm consolidation projecting over the inferior righ t kidney pole. Stable L1 compression deformity. Degenerative changes in the lumbar spine and bilatera l hips. IMPRESSION: Left renal calcifications are no longer identified. Right nephrolithiasis. Reviewed, dictated and finalized at location K. ER MACHINE OPERATOR IMPRESSION: Left renal calcifications are no longer identified. Right nephrolit hiasis.
== END 2023-06-27 13:12 | disposition home or self-care (01) ==
LOC: ANHIMG 13:13
PROVIDERS: Visit Provider Physician Assistant
DX: N20.0 Calculus of kidney (principal)
CPT/HCPCS: 74018

== ENCOUNTER 2023-08-04 10:55 | Outpatient (CLI) | payer BC, SELFPAY ==
--- NOTE | ~2023-08-04 | XR_ITS ---
EXAM: XR abdomen/kub 1V DATE: 08/04/2023 11:10 HISTORY: BILATERAL KIDNEY STONES, 3 WK F/U FROM RT LITHO . COMPARISON: 06/27/2023; CT abdomen pelvis 11/06/2021. FINDINGS: Clear lung bases. Normal bowel gas pattern. No organomegaly. Stable right lower pole calci fications Pelvic phleboliths. Degenerative changes in the spine and bilateral hips. Stable L1 enoch leanna deformity. IMPRESSION: Stable right nephrolithiasis. Reviewed, dictated and finalized at location K. SSMENT MANAGER
== END 2023-08-04 10:56 | disposition home or self-care (01) ==
LOC: ANHIMG 10:57
PROVIDERS: Visit Provider Physician Assistant
DX: N20.0 Calculus of kidney (principal)
CPT/HCPCS: 74018

== ENCOUNTER 2023-09-17 08:22 | Outpatient (CLI) | payer BC, SELFPAY ==
--- NOTE | ~2023-09-17 | XR_ITS ---
XR abdomen/kub 1V DATE: 09/17/2023 08:38 INDICATION: Kidney stones TECHNIQUE: Supine AP views COMPARISON: None FINDINGS: There is an approximately 12 mm calcification overlying the right kidney. Adjacent smaller calcifications are noted. There are nonspecific calcifications overlying the left upper quadrant. Prior 11/02/2021 CT abdomen pe lvis is not available from the archive at this time for comparison. Consider noncontrast CT abdomen p nichol examination for more definitive evaluation of urinary tract calculi. No evidence of bowel obstruction. No visceromegaly is detected. IMPRESSION: Probable nephrolithiasis Reviewed, dictated and finalized at Location A. Reviewed, dictated and finalized at location B. IMPRESSION: Probable nephrolithiasis
== END 2023-09-17 08:23 | disposition home or self-care (01) ==
PROVIDERS: Visit Provider Urology
DX: N20.0 Calculus of kidney (principal)
CPT/HCPCS: 74018

== ENCOUNTER 2024-07-27 08:27 | Outpatient (CLI) | payer BC, SELFPAY ==
--- NOTE | ~2024-07-27 | XR_ITS ---
Supine and upright views of the abdomen Clinical history: Renal stones COMPARISON: 09/17/2023 Findings: Bowel gas pattern is nonspecific. No evidence for obstruction or free air. Stable 12 mm rig ht lower pole renal stone. Probable additional small bilateral renal stones are present. Osseous stru ctures are intact. Impression: Bilateral nephrolithiasis, probably similar to prior exam. Reviewed, dictated and finalized at location . MBLER WATCH TRAIN Impression: Bilateral nephrolithiasis, probably similar to prior exam.
--- OUTSIDE RECORDS SUMMARY | 2024-07-27 09:04 | XMS_ITS | Referral Summary ---
Author Organization [facility] Address [address] [place] [address] Care Team Providers Care Control Panel Assembler Name Role Phone Gautam Sparks MD Primary Care Provider + Source Comments [facility],non-owned Affiliates and Associated Physician Practices is amultiple site organization consisting of ambulatory clinics and hospital sitesin [place], [place], [place] and [place]. This disclosure is being madepursuant to the Care Everywhere program and may not contain all information available regarding this patient. Last updated 18.[facility] Allergies Active Allergy Reactions Criticality Noted Date Comments Penicillins Anaphylaxis High 10/09/2022 Sulfa Drugs Urticaria Medium 10/09/2022 Medications * Be aware that medications may not be up to date on this document. Alwaysverify current medications with the patient. Medication Sig Dispensed Refills Start Date End Date Status cephalexin (Keflex) 500 MG capsule 09/27/2022 Active PARoxetine (Paxil) 20 MG tablet Take 1 (one) tablet by mouth once daily 05/01/2022 Active HYDROcodone-acetam inophen (Kiron) 5-325 MG tablet Take 1 (one) tablet to 2 (two) tablets by mouth every 6 hours as needed 10/04/2022 Active Ferrous Sulfate 324 MG TBEC Take 65 mg by mouth once daily Active cyanocobalamin (Vitamin B-12) injection INJECT 1ML (1000MCG) SUBCUTANEOUSLY EVERY WEEK 03/06/2022 Active potassium citrate ER 15 MEQ (1620 MG) tablet Take 1 (one) tablet by mouth 2 times daily 07/04/2022 Active tirzepatide (Mounjaro) 15 MG/0.5ML injection INJECT 1 SYRINGE SUBCUTANEOUSLY ONCE A WEEK 07/31/2022 Active tamsulosin (Flomax) 0.4 MG capsule Take 1 (one) capsule by mouth once daily 03/28/2022 Active testosterone cypionate (Depo-Testosterone ) 200 MG/ML injection Inject 0.7 mL into muscle Two times a week 03/06/2022 Active Social History Tobacco Use Types Packs/Day Years Used Date Smoking Tobacco: Every Day Cigarettes Smokeless Tobacco: Never Tobacco Cessation:Ready to Q uit: Not Asked; Counseling Given: Not Answered Alcohol Use Standard Drinks/Week Comments Not Currently 0 (1 standard drink = 0.6 oz pur e alcohol) rarely Sex and Gender Information Value Date Recorded Sex Assigned at Not on file Gender Identity Not on file Sexual Orientation Not on file Last Filed Vital Signs Vital Sign Reading Time Taken Comments Blood Pressure 148/87 10/09/2022 8:15 AM CDT Pulse 83 10/09/2022 8:15 AM CDT Temperature - - Respiratory Rate - - Oxygen Saturation 99% 10/09/2022 8:15 AM CDT Inhaled Oxygen Concentration - - Weight 112.5 kg (248 lb) 10/09/2022 8:15 AM CDT Height 180.3 cm (5' 11 ) 10/09/2022 8:15 AM CDT Body Mass Index 34.59 10/09/2022 8:15 AM CDT Plan of Treatment Not on file Care Teams Control Panel Assembler Relationship Specialty Start Date End Date Gautam Sparks MD [address] [place] [id number] PCP - General 09/25/22
--- OUTSIDE RECORDS SUMMARY | 2024-07-27 09:04 | XMS_ITS | Patient Health Summary ---
Author Organization [facility] Address [address] [place] [address] Care Team Providers Care Sales And Merchandising Associate Name Role Phone Gautam Sparks MD Primary Care Provider + Note from [facility],non-owned Affiliates and Associated Physician Practices is amultiple site organization consisting of ambulatory clinics and hospital sitesin [place], [place], [place]. This disclosure is being madepursuant to the Care Everywhere program and may not contain all information available regarding this patient. Last updated 18.[facility] Allergies * Penicillins(Anaphylaxis) -High Criticality * Sulfa Drugs(Urticaria) -Medium Criticality * Latex(Rash) -Medium Criticality,Inactive Medications * Be aware that medications may not be up to date on this document. Alwaysverify current medications with the patient. * cephalexin (Keflex) 500 MG capsule(Started 09/27/2022) * PARoxetine (Paxil) 20 MG tablet(Started 05/01/2022) Take 1 (one) tablet by mouth once daily * HYDROcodone-acetaminophen ([place]) 5-325 MG tablet(Started 10/04/2022) Take 1 (one) tablet to 2 (two) tablets by mouth every 6 hours as needed * Ferrous Sulfate 324 MG TBEC Take 65 mg by mouth once daily * cyanocobalamin (Vitamin B-12) injection(Started 03/06/2022) INJECT 1ML (1000MCG) SUBCUTANEOUSLY EVERY WEEK * potassium citrate ER 15 MEQ (1620 MG) tablet(Started 07/04/2022) Take 1 (one) tablet by mouth 2 times daily * tirzepatide (Mounjaro) 15 MG/0.5ML injection(Started 07/31/2022) INJECT 1 SYRINGE SUBCUTANEOUSLY ONCE A WEEK * tamsulosin (Flomax) 0.4 MG capsule(Started 03/28/2022) Take 1 (one) capsule by mouth once daily * testosterone cypionate (Depo-Testosterone) 200 MG/ML injection(Started 03/06/2022) Inject 0.7 mL into muscle Two times a week Social History Tobacco Use Types Packs/Day Years [...] Mass Index 34.59 10/09/2022 8:15 AM CDT Procedures * IMAGING/RADIOLOGY/XRAY RESULTS ORDER(Performed 11/01/2022) * LAB RESULTS ORDER(Performed 11/01/2022) * CA MSR PVR U&/BLADD CAPCTY US NON(Performed 10/09/2022) Performed for Recurrent UTI * CULTURE URINE(Performed 10/09/2022) * URINALYSIS AUTO - POINT OF CARE (AMB) [facility](Performed 10/09/2022) Performed for Recurrent UTI Results * LAB RESULTS ORDER (11/01/2022) 11/01/2022 Narrative 11/01/2022 Ordered by an unspecified provider. Scanned Document LAB - THERAPEUTIC DR MARIE MONITORING ORDERABLES * IMAGING RADIOLOGY XRAY RESULTS ORDER (11/01/2022) Anatomical Region Laterality Modality Other 11/01/2022 Narrative 11/01/2022 Ordered by an unspecified provider. Scanned Document IMAGING * CA MSR PVR U&/BLADD CAPCTY US NON (10/09/2022 1:26 PM CDT) Narrative Tiarra Cuello APRN-PANCHITO - 10/09/2022 1:26 PM CDT Tiarra Cuello APRN-PANCHITO 10/09/2022 1:26 PM PVR= 0ml Tiarra Cuello APRN-PANCHITO PROCEDURE/MINOR SURGICAL ORDERABLES * CULTURE URINE (10/09/2022 9:00 AM CDT) Culture QUEST Comment: CULTURE, URINE, ROUTINE Micro Number: [id number] Test Status: Final Specimen Source: Urine, clean catch Specimen Quality: Adequate Result: No Growth Test Performed at: [facility] [address] NARCISO PALACIOS MD 10/09/2022 9:00 AM CDT 10/10/2022 5:13 AM CDT Tiarra Cuello APRN-ABORIGINAL EDUCATION WORKER COORDINATOR LAB - MICROBIOL OGY ORDERABLES [address] [address] * URINALYSIS AUTO - POINT OF CARE (AMB) [facility] (10/09/2022) Glucose UA - Bilirubin UA POCT 1+ Ketones UA POCT - Specific [place] UA 1.020 Blood Urine POCT 6.0 pH UA +- Protein UA - Urobilinogen UA - Nitrite UA + WBC UA +- Urine URINE / Unknown 10/09/2022 Tiarra Cuello APRN-ABORIGINAL EDUCATION WORKER COORDINATOR LAB - POINT OF CARE ORDERABLES Care Teams Sales And Merchandising Associate Relationship Specialty Start Date End Date Gautam Sparks MD [address] [place] [address] PCP - General 09/25/22
--- OUTSIDE RECORDS SUMMARY | 2024-07-27 09:04 | XMS_ITS | Encounter Summary ---
Author Organization [facility] Address [address] [place] [address] Care Team Providers Care Remedial Reading Teacher Name Role Phone Gautam Sparks MD Primary Care Provider Lazara Dent MD Unavailable [phone] Encounter Details Date Type Department Care Team (Late st Contact Info) Description 12/22/2020 Telephone [facility] - Interventional Radiology [facility] [address] [place] [address] Angela Myers RN Social History Tobacco Use Types Packs/Day Years Used Date Smoking Tobacco: Every Day Cigarettes 1 20 Smokeless Tobacco: Never Alcohol Use Standard Drinks/Week Comments Yes 0 (1 standard drink = 0.6 oz pur e alcohol) AUDIT-C Answer Date Recorded Q1: How often do you have a drink containing alc ohol? Monthly or less 12/14/2020 Q2: How many drinks containi ng alcohol do you have on a typical day when you are drinking? 1 or 2 12/14/2020 Q3: How often do you have si x or more drinks on one occasion? 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
--- OUTSIDE RECORDS SUMMARY | 2024-07-27 09:04 | XMS_ITS | Clinical Summary ---
Author Organization [facility] Address [address] [place] [address] Care Team Providers Care Inspector Cold Working Name Role Phone Gautam Sparks MD Primary Care Provider + Source Comments [facility],non-owned Affiliates and Associated Physician Practices is amultiple site organization consisting of ambulatory clinics and hospital sitesin [place], [place], [place] and [place]. This disclosure is being madepursuant to the Care Everywhere program and may not contain all information available regarding this patient. Last updated 18.[facility] Allergies Active Allergy Reactions Criticality Noted Date [...] mouth once daily 05/01/2022 Active HYDROcodone-acetam inophen ([place]) 5-325 MG tablet Take 1 (one) tablet [...] 10/09/2022 8:15 AM CDT Plan of Treatment Health Maintenance Due Date Last Done Comments COLOGUARD (AGES 45-75) - COLON CA SCREENING 1973 COLON MONITORING 1973 COLONOSCOPY - COLON CA SCREENING 1973 CT COLONOGRAPHY - COLON CA SCREENING 1973 Colorectal Cancer Screening 1973 FIT - COLON CA SCREENING 1973 FLEX SIG - COLON CA SCREENING 1973 LIPID TESTING 1973 HIV SCREENING 1988 HEPATITIS C SCREENING 02/25/1991 DTAP/TDAP/TD VACCINES (1 - Tdap) 1992 HEPATITIS B VACCINE (1 of 3 - 19+ 3-dose series) 1992 PNEUMOCOCCAL VACCINE 50+ (1 of 2 - PCV) 1992 PNEUMOCOCCAL VACCINE (1 of 2 - PCV) 1992 SCREENING FOR DIABETES 10/09/2022 ZOSTER VACCINE (1 of 2) 2023 COVID-19 VACCINE ( season) 2024 INFLUENZA VACCINE (#1) 2024 2, 05/16/2021, 04/05/2020, Additional history exists DEPRESSION SCREENING 06/16/2024 HIB VACCINE Aged Out No longer eligi ble based on patient's age to complete this topic HPV VACCINE Aged Out No longer eligi ble based on patient's age to complete this topic MENINGOCOCCAL (Group B) VACCINE Aged Out No longer eligible based on patient's age to complete this topic MENINGOCOCCAL VACCINE Aged Out No andres maximilian eligible based on patient's age to complete this topic Care Teams Inspector Cold Working Relationship Specialty Start Date End Date Gautam Sparks MD [address] [place] [id number] PCP - General 09/25/22
--- OUTSIDE RECORDS SUMMARY | 2024-07-27 09:05 | XMS_ITS | Referral Summary ---
Author Organization [facility] Address [address] [place] [address] Care Team Providers Care Online User Experience Strategist Name Role Phone Gautam Sparks MD Primary Care Provider Lazara Dent MD Unavailable [phone] Allergies Active Allergy Reactions Criticality Noted Date Comments Adhesive Rash Medium 01/13/2014 Penicillins Anaphylaxis,Swollen tongue High Childhood reaction Sulfa (Sulfonamide Antibiotics) Hives Medium . Medications PARoxetine (PAXIL) 20 mg tabletIndication s:Anxiety with Depression Take 20 mg by mouth every morning 0 Active testosterone cypionate 200 mg/mL kit Inject 140 mg into the muscle as instructed 2 (two) times a week Friday and Friday 2 Active cefdinir (OMNICEF) 300 mg capsuleIndicatio ns:Urinary Tract/Genitourin thea Infection Take 300 mg by mouth 2 (two) times a day UTI 2 Active tamsulosin (FLOMAX) 0.4 mg extended release capsuleIndicatio ns:benign prostatic hyperplasia with lower urinary tract sx Take 0.4 mg by mouth nightly 2 Active Mounjaro 7.5 mg/0.5 mL pen injectorIndicati ons: Weight loss Inject 12.5 mg as directed once a week Friday 2 Active ferrous sulfate ER 324 mg (65 mg iron) EC tabletIndication s:Iron Deficiency Anemia Take 65 mg by mouth daily with breakfast Active d-mannose powderIndication s:UTI Take 2,000 mg by mouth nightly Capsules 1000 mg x 2 at HS Active acetaminophen (TYLENOL) 500 mg tablet Take 1,000 mg by mouth every 6 (six) hours as needed for pain Active oxyCODONE (ROXICODONE) 5 mg immediate release tabletIndication s:Pain Take 1 tablet (5 mg total) by mouth every 4 (four) hours as needed for pain 15 tablet 2 Active Additional Information Patient not taking.Reported on 05/24/2022 cyclobenzaprine (FLEXERIL) 10 mg tablet Take 1 tablet (10 mg total) by mouth 3 (three) times a day as needed for muscle spasms 20 tablet 2 Active Additional Information Patient not taking.Reported on 05/24/2022 docusate sodium (COLACE) 100 mg capsuleIndicatio ns:constipation Take 1 capsule (100 mg total) by mouth 2 (two) times a day 30 capsule 2 Active gabapentin (NEURONTIN) 300 mg capsuleIndicatio ns:Postoperative Acute Pain Take 1 capsule (300 mg total) by mouth 3 (three) times a day for 10 days 30 capsule 2 Active Additional Information Patient not taking.Reported on 05/24/2022 Active Problems Problem Noted Date Diagnosed Date Recurrent ventral incisional hernia 05/06/2022 Incarcerated incisional hernia 2022 Overview (2022): Added automatically from request for surgery [id number] S/P ureteral stent placement 01/04/2021 Ventral hernia without obstruction or gangrene 0 01/04/2021 History of kidney stones 01/04/2021 Hyponatremia 01/04/2021 Hematuria, microscopic 01/04/2021 Morbid obesity with BMI of 45.0-49.9, adult 12/15 Kidney stone 12/26/2020 Abdominal hernia 02/26/2016 History of bariatric surgery 01/29/2016 Malabsorption 01/23/2015 Morbid obesity 08/12/2013 Male infertility, unspecified 02/08/2010 Fever Social History Tobacco Use Types Packs/Day Years Used Date Smoking Tobacco: Some Days Cigarettes 1 33.8 Started: 1988; Last attempted to quit: 04/19/2022 Smokeless Tobacco: Never Tobacco Cessation:Ready to Q uit: Not Asked; Counseling Given: Not Answered Alcohol Use Standard Drinks/Week Comments Yes 0 (1 standard drink = 0.6 oz pur e alcohol) AUDIT-C Answer Date Recorded Q1: How often do you have a drink containing alc ohol? Monthly or less 05/06/2022 Q2: How many drinks containi ng alcohol do you have on a typical day when you are drinking? 1 or 2 05/06/2022 Q3: How often do you have si x or more drinks on one occasion? 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 Gender Identity Male 02/29/2020 3:55 PM CDT Sexual Orientation Not on file Last Filed Vital Signs Vital Sign Reading Time Taken Comments Blood Pressure 126/84 05/24/2022 10:54 AM FOOTBALL COACH Pulse 68 05/24/2022 10:54 AM FOOTBALL COACH Temperature 36.2 C (97.2 F) 05/24/2022 10:54 AM FOOTBALL COACH Respiratory Rate 18 05/08/2022 11:1 0 AM FOOTBALL COACH Oxygen Saturation 96% 05/08/2022 11: 10 AM FOOTBALL COACH Inhaled Oxygen Concentration - - Weight 126.9 kg (279 lb 12.8 oz) 2021 10:54 AM FOOTBALL COACH Height 180.3 cm (5' 11 ) 05/24/2022 10: 54 AM FOOTBALL COACH Body Mass Index 39.02 05/24/2022 10:54 AM FOOTBALL COACH Plan of Treatment Not on file Medical Devices Implanted Type Area Ammunition And Explosives Handler Device Identifier Shelf Expiration Date Model / Serial / Lot Ethicon Endo Surgery [id number] Square Mesh Surgical Prolene Polypropylene Spm3xl - Sn/A - [id number] Implanted:Qty: 1 on 05/06/2022 by Mao White MD at [facility] Mesh N/A: Abdomen Ethicon Endo Surgery [id number] 07/16/2024 [id number] / N/A / [id number] Joint Right: Shoulder [employer] [id number] Amplatz Rb 8.5fr 28cm 6 Sideport Introducer Catheter String - [id number] Implanted:Qty: 1 on 12/27/2020 at [facility] [employer] 08/04/2023 [id number] / / [id number] [place] [employer] [place] [employer] [place] [employer] [place] Directives For more information, please contact: [phone] * Full Code (Latest Code Status on File) Date Activated Date Inactivated Comments 05/06/2022 4:46 PM 05/08/2022 5:37 PM * Full Code Date Activated Date Inactivated Comments 01/03/2021 8:00 PM 01/05/2021 7:01 PM * Full Code Date Activated Date Inactivated Comments 12/26/2020 7:09 PM 12/28/2020 12:59 AM Care Teams Online User Experience Strategist Relationship Specialty [place] [address] [place] [address] PCP - General Internal Medicine 02/29/20 [place] [address] [place] [address] Consulting Physician Urology 12/27/20
--- OUTSIDE RECORDS SUMMARY | 2024-07-27 09:05 | XMS_ITS | Clinical Summary ---
Author Organization [facility] 1 Address [address] [place] [address] Care Team Providers Care Criminal Investigative Agent Name Role Phone Gautam Sparks MD Primary Care Provider Lazara Dent MD Unavailable [phone] Allergies Active Allergy Reactions Criticality Noted [...] (2022): Added automatically from request for surgery [id number] S/P ureteral stent placement 01/04/2021 Ventral hernia without obstruction or gangrene 0 01/04/2021 History of kidney stones 01/04/2021 Hyponatremia 01/04/2021 Hematuria, microscopic 01/04/2021 Morbid obesity with BMI of 45.0-49.9, adult 12/15 Kidney stone 12/26/2020 Abdominal hernia 02/26/2016 History of bariatric surgery 01/29/2016 Malabsorption 01/23/2015 Morbid obesity 08/12/2013 Male infertility, unspecified 02/08/2010 Fever Surgical History Surgery Date Site/Laterality Comments UMBILICAL HERNIA REPAIR LITHOTRIPSY TONSILLECTOMY/ADENOIDECTOMY GASTRIC BYPASS OPEN 06/16/2013 - 06/15/2014 CHOLECYSTECTOMY OPEN 06/16/2013 - 06/15/2014 INCISIONAL HERNIA REPAIR 2013, 2016 PANNICULECTOMY 06/16/2015 - 06/15/2016 NEPHROURETERAL STENT PLACEMENT NEW ACCESS RIGHT 12/26/2020 Right URETERAL STENT PLACEMENT VIA EXISTING TRACT RIGHT 12/27/2020 Right INCISIONAL HERNIA REPAIR 05/06/2022 Open AWR w/ bilateral TAR Medical History Medical History Date Comments HTN (hypertension) ABBE on CPAP Anxiety Family History Medical History Relation Name Comments Heart disease Father Family history of cardiac disorder - (Added by TW Conv) Obesity Mother Family history of obesity - (Added by TW Conv) Heart disease Other 1 Family history of cardiac disorder - Relation: Grandparent (Added by TW Conv) Diabetes Other 2 Family history of diabetes mellitus - Relation: Grandparent (Added by TW Conv) Alcohol abuse Other 3 Alcohol depend ency - Relation: Grandparent (Added by TW Conv) Cancer Other 4 Family history of malignant neoplasm - Relation: Grandparent (Added by TW Conv) Relation Name Status Comments Father Alive Mother Other 1 Other 2 Other 3 Other 4 Social History Tobacco Use Types Packs/Day Years [...] on file Legal Sex Male 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 COO & CO 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 Gender Identity Male 02/29/2020 3:55 PM CDT Sexual Orientation Not on file Obstetrics History Last Filed Vital Signs Vital Sign Reading Time Taken Comments Blood Pressure 126/84 05/24/2022 10:54 AM COO & CO FOUNDER Pulse 68 05/24/2022 10:54 AM [employer]OO & CO FOUNDER Temperature 36.2 C (97.2 F) 05/24/2022 10:54 AM COO & CO FOUNDER Respiratory Rate 18 05/08/2022 11:1 0 AM COO & CO FOUNDER Oxygen Saturation 96% 05/08/2022 11: 10 AM [employer]OO & CO FOUNDER Inhaled Oxygen Concentration - - Weight 126.9 kg (279 lb 12.8 oz) 2021 10:54 AM [employer]OO & CO FOUNDER Height 180.3 cm (5' 11 ) 05/24/2022 10: 54 AM COO & CO FOUNDER Body Mass Index 39.02 05/24/2022 10:54 AM COO & CO FOUNDER Plan of Treatment Health Maintenance Due Date Last Done Comments Colon Cancer Screening-Colonoscopy 1973 Depression Screening 1973 Hepatitis C Screening 1973 Prostate Cancer Screening-PSA 1973 Pneumococcal vaccine <65 (1 of 2 - PCV) 1979 Hepatitis B Screening 1991 Regular Well Visit/Exam 18-64 1991 Zoster Vaccine (1 of 2) 2023 Covid-19 Vaccine (4 - 2023-2 5 season) 2024 05/16/2021, 10/16/2020, 09/25/2020 Influenza Vaccine (#1) 2024 , 05/16/2021, 04/05/2020, Additional history exists DTaP/Tdap/Td Vaccine (3 - Td or Tdap) 06/10/2028 06/10/2018, 08/13/2011 Medical Devices Implanted Type Area Customer Care Voice Consultant Device Identifier Shelf Expiration Date Model / Serial / Lot Ethicon Endo Surgery [id number] Square Mesh Surgical Prolene Polypropylene Spm3xl - Sn/A - [id number] Implanted:Qty: 1 on 05/06/2022 by Mao White MD at [facility] Mesh N/A: Abdomen Ethicon Endo Surgery [id number] 07/16/2024 [id number] / N/A / [id number] Joint Right: Shoulder [employer] [id number] Amplatz Rb 8.5fr 28cm 6 Sideport Introducer Catheter String - [id number] Implanted:Qty: 1 on 12/27/2020 at [facility] [employer] 08/04/2023 [id number] / / [id number] [place] Advance Directives For more information, please contact: [phone] * Full Code (Latest Code Status on File) Date Activated Date Inactivated Comments 05/06/2022 4:46 PM 05/08/2022 5:37 PM * Full Code Date Activated Date Inactivated Comments 01/03/2021 8:00 PM 01/05/2021 7:01 PM * Full Code Date Activated Date Inactivated Comments 12/26/2020 7:09 PM 12/28/2020 12:59 AM Care Teams Criminal Investigative Agent Relationship Specialty Start [place] [address] [place] [address] PCP - General Internal Medicine 02/29/20 [place] [address] [place] [address] Consulting Physician Urology 12/27/20
== END 2024-07-27 08:28 | disposition home or self-care (01) ==
LOC: ANHIMG 08:30
PROVIDERS: Visit Provider Urology
DX: N20.0 Calculus of kidney (principal)
CPT/HCPCS: 74018